=== PATIENT | male | born 1955 | race Caucasian/White ===

== ENCOUNTER 2017-01-29 06:03 | Day surgery (SDC) | payer MEDICARE ==
[2017-01-26 14:57] LABS: BLOOD UREA NITROGEN 12 mg/dL (7-18)
[2017-01-26 15:02] LABS: ASPARTATE AMINO TRANSFERASE 16 U/L (15-37)
[~2017-01-29] VITALS: Ht 170.2 cm; Wt 76.3 kg
[~2017-01-29 06:03] MED LIST: ALPR-475 PO; AMLO2.5T PO; ASPI-515 PO; ATOR-2 PO; CAPT12.52 PO; CITA40TA12 PO; FURO20TA3 PO; MACI10TA PO; OMEP40CA6 PO; POTA10TA11 PO; RANI150T8 PO; SUCR1TAB PO; TIOT4MIS3 INH; ZOLP10TA PO; ZOLP12.52 PO
[2017-01-29 06:48] VITALS: BP 94/63
[2017-01-29] MEDS ORDERED: FENTANYL PF 100 MCG/2ML ONE ×3 (06:50→09:11)
[2017-01-29] MEDS ORDERED: MIDAZOLAM 1 MG/ML, 2ML ONE (06:50)
[2017-01-29] MEDS ORDERED: PROPOFOL 10 MG/ML, 20ML ONE (06:51)
[2017-01-29] MEDS ORDERED: CEFAZOLIN 1,000 MG ONE ×2 (06:56)
[2017-01-29] MEDS ORDERED: ROCURONIUM 10 MG/ML,10ML ONE (06:56)
[2017-01-29] MEDS ORDERED: SODIUM CHLORIDE 0.9% PF 10ML ONE (06:56)
[2017-01-29] MEDS ORDERED: EPINEPHRINE 1 MG/ML, 1ML ONE (06:56)
[2017-01-29] MEDS ORDERED: BUPIVACAINE/PF 0.5% ONE (06:56)
[2017-01-29] MEDS ORDERED: LACTATED RINGERS 1,000 ML IV SCH (06:57)
[2017-01-29] MEDS ORDERED: NEOSTIGMINE 1 MG/ML, 10ML ONE (06:58)
[2017-01-29] MEDS ORDERED: GLYCOPYRROLATE 0.4 MG/2 ML, 2ML ONE (06:58)
[2017-01-29] MEDS ORDERED: BUPIVACAINE/PF-EPI 0.5% 1:200K IM ONE (07:23)
[2017-01-29] MEDS ORDERED: LABETALOL 5MG/ML, 20ML IV PRN (07:30)
[2017-01-29] MEDS ORDERED: ALBUTEROL SULFATE 2.5 MG/3 ML NPPB PRN (07:30)
[2017-01-29] MEDS ORDERED: hydrALAzine 20 MG/ML, 1ML IV PRN (07:30)
[2017-01-29] MEDS ORDERED: ACETAMINOPHEN 325 MG TABLET PO PRN (07:30)
[2017-01-29] MEDS ORDERED: OXYcodone 5 MG/5 ML ORAL.SOL UDC PO PRN (07:30)
[2017-01-29] MEDS ORDERED: ONDANSETRON 2MG/ML, 2ML IVPush PRN (07:30)
[2017-01-29] MEDS ORDERED: PROMETHAZINE 25 MG/ML, 1ML IV PRN (07:30)
[2017-01-29] MEDS ORDERED: ALBUTEROL SULFATE 2.5 MG/3 ML ONE (09:00)
[2017-01-29] MEDS ORDERED: MEPERIDINE/PF 50 MG/ML ONE (09:11)
[2017-01-29] MEDS ORDERED: ACETAMINOPHEN 650 MG/20.3 ML UDC ONE (09:11)
[2017-01-29] MEDS ORDERED: OXYcodone 5 MG/5 ML ORAL.SOL UDC ONE (09:12)
[2017-01-29] MEDS: MEPERIDINE/PF 25MG/0.5ML IVPush PRN ×2 (09:17→09:33)
[2017-01-29] MEDS: FENTANYL PF 100 MCG/2ML IV PRN ×4 (09:23→10:03)
[2017-01-29] MEDS ORDERED: HYDROmorphone 2 MG/ML, 1ML ONE (10:11)
[2017-01-29] MEDS: HYDROmorphone 1 MG/ML, 1ML IV PRN ×2 (10:12→10:21)
== END 2017-01-29 12:15 ==
LOC: OUT 06:03
PROVIDERS: ATTEND Colon & Rectal Surgery
DX: K40.20 Bilateral inguinal hernia, without obstruction or gangrene, not specified as recurrent (principal); K42.9 Umbilical hernia without obstruction or gangrene; J44.9 Chronic obstructive pulmonary disease, unspecified; F32.9 Major depressive disorder, single episode, unspecified; K21.9 Gastro-esophageal reflux disease without esophagitis; Z98.890 Other specified postprocedural states; Z79.82 Long term (current) use of aspirin; Z72.89 Other problems related to lifestyle; Z87.891 Personal history of nicotine dependence
CPT/HCPCS: 36415; 49585; 49650; 80053; 93005; 94640; C1727; C1781; J0171; J0690; J1170; J2175; J2250; J2704; J2710; J3010; J3490; J7613

== ENCOUNTER → 2017-10-23 | Outpatient (CLI) | payer MEDICARE ==
[~2017-10-23] MED LIST changes: -AMLO2.5T PO; +AMLO2.5T3 PO; +RANI150T23 PO; -RANI150T8 PO
== END | disposition home or self-care (01) ==
LOC: CFH 09:05
PROVIDERS: ATTEND Nurse Practitioner
DX: J84.10 Pulmonary fibrosis, unspecified (principal); J43.2 Centrilobular emphysema; I50.9 Heart failure, unspecified; Z87.891 Personal history of nicotine dependence
CPT/HCPCS: 71250